=== PATIENT | female | born 1930 | race Caucasian/White ===

== ENCOUNTER 2019-03-10 22:42 | Inpatient (IN) ==
[2019-03-10] MEDS ORDERED: CARDIZEM IV ONE (23:35)
[2019-03-11 00:20] LABS: BASO# 0.04 X1000 (0.0-0.2); BASO% 0.7 % (0.0-0.8); EOS# 0.18 X1000 (0.0-0.7); EOS% 3.3 % (0.0-10.0); HEMATOCRIT 40.4 % (37.0-47.0); HEMOGLOBIN 13.3 g/dL (12.0-16.0); LYMPH# 1.47 X1000 (1.2-3.4); LYMPH% 26.9 % (20.5-51.1); MCH 31.2 PG (27-31); MCHC 32.9 g/dL (33-37); MCV 94.8 FL (81-99); MONO# 0.41 X1000 (0.11-0.59); MONO% 7.5 % (1.7-9.3); MPV 10.6 FL (7.4-10.4); NEUT# 3.37 X1000 (1.4-6.5); NEUT% 61.6 % (42.2-75.2); PLT 274 X1000 (130-400); RBC 4.26 XMIL (4.2-5.4); RDW 13.5 % (11.5-14.5); WBC 5.47 X1000 (4.8-10.8)
[2019-03-11 00:28] LABS: INR 0.86; PROTIME 12.4 Seconds (11.0-16.0); PTT 28.1 Seconds (22.3-41.8)
[2019-03-11 00:49] LABS: ALB/GLOB RATIO 1.4; ALBUMIN 4.4 g/dL (3.5-5.0); CALCIUM 9.6 mg/dL (8.8-10.2); CREATININE 1.5 mg/dL (0.5-0.9); POTASSIUM 4.5 mmol/L (3.5-5.1); TOTAL BILIRUBIN 0.18 mg/dL (0.20-1.00); TOTAL PROTEIN 7.5 g/dL (6.3-8.3)
[2019-03-11] MEDS: CARDIZEM 125 MG/D5W 125 MG/125 ML IVPB IV SCH ×3 (01:04→11:15)
--- NOTE | 2019-03-11 02:25 | HISTORY AND PHYSICAL ---
PRIMARY CARE PHYSICIAN: Dr. Galvan. CHIEF COMPLAINT: Heart racing and dizziness, not feeling well. HISTORY OF PRESENTING ILLNESS: An 88-year-old elderly female with a history of hypertension, chronic atrial fibrillation, hypothyroidism, and breast cancer, presented to emergency department with 1-day history of having heart racing, dizziness, and not feeling well. She subsequently had come to the emergency department. In the ED, she was found to be in atrial fibrillation with rapid ventricular response. She was started on IV Cardizem, and she will require admission for further management. At the time of my examination, she denied any headache, fever, chills, chest pain, hemoptysis, melena, weight changes, but complained of heart racing and not feeling well. PAST MEDICAL HISTORY: Includes hypertension, breast cancer, chronic atrial fibrillation, hypothyroidism. PAST SURGICAL HISTORY: Hysterectomy, tonsillectomy, cataract surgery, left breast lumpectomy, septoplasty. ALLERGIES: Sulfa, penicillin, amoxicillin. CURRENT MEDICATIONS: Include amiodarone 200 mg p.o. b.i.d., Eliquis 2.5 mg p.o. b.i.d., atenolol 12.5 mg p.o. b.i.d., levothyroxine 137 mcg p.o. daily, omeprazole 20 mg p.o. daily, paroxetine 20 mg p.o. daily, pravastatin 20 mg p.o. at bedtime. SOCIAL HISTORY: No history of smoking. Admits to social alcohol use. Denies any illicit drug use. FAMILY HISTORY: No history of coronary artery disease. REVIEW OF SYSTEMS: Fourteen-point review of systems is as in HPI. Other systems negative. PHYSICAL EXAMINATION: GENERAL: Cooperative, friendly female, she is resting more comfortably now. VITAL SIGNS: Temperature 97.3 degrees, pulse 102, respiration 18, blood pressure 104/64. HEENT: Atraumatic, normocephalic. Extraocular movements intact. PERRLA. NECK: No masses. CHEST: Clear to auscultation. CARDIOVASCULAR: Irregular. ABDOMEN: Soft. Positive bowel sounds. EXTREMITIES: No edema. NEURO: Nonfocal. GENITOURINARY: No bladder distention. SKIN: Warm. LABORATORIES AND STUDIES: WBC 5.47, hemoglobin 13.3, hematocrit 40.4, platelets 274,000. Sodium 141, potassium 4.5, chloride 103, CO2 is 23, BUN is 22, creatinine 1.5. Glucose 111. Chest x-ray is negative. ASSESSMENT: This is an 88-year-old female with a history of chronic atrial fibrillation, hypertension, hypothyroidism, who presented to the emergency department with 1-day history of having cough heart racing, dizziness, not feeling well. She was evaluated in the emergency department. She was found to be in atrial fibrillation with rapid ventricular response. She subsequently was started on Cardizem and she will require admission for further management. 1. Atrial fibrillation with rapid ventricular response. 2. Hypertension. 3. Hypothyroidism. PLAN: 1. We will admit patient to [facility]. 2. Continue with Cardizem drip. 3. We will consult Cardiology. 4. We will monitor blood pressure closely. 5. We will check thyroid function tests. 6. We will continue with Eliquis for DVT prophylaxis. 7. We will continue to follow and reassess, make further recommendation based on patient's clinical course. cc: MD Norm Stoner MD
--- NOTE | 2019-03-11 04:10 | PROVIDER DOCUMENTATION ---
This chart was entered by Marianna Christensen Scribe, acting as scribe for Edd Maxwell MD. HPI-Cardiac General - General Chief Complaint: Palpitations Stated Complaint: AFIB Time Seen by Provider: 03/10/19 23:29 Source: patient Allergies/Adverse Reactions: Patient Allergies Allergy/AdvReac Type Severity Reaction Status Date / Time anastrozole [From Arimidex] Allergy Intermediate HIVES Verified 03/10/19 23:54 Penicillins Allergy Unknown Unknown Verified 03/10/19 23:54 amoxicillin trihydrate * AdvReac Severe Unknown Verified 03/10/19 23:54 [From Augmentin] potassium clavulanate * AdvReac Severe Unknown Verified 03/10/19 23:54 [From Augmentin] Sulfa (Sulfonamide AdvReac Intermediate NAUSEA Verified 03/10/19 23:54 Antibiotics) [Sulfa(Sulfonamide Antibiotics)] Home Medications: Home Medication List Medication Instructions Recorded Confirmed Last Taken Type Calcium Citrate/Vitamin D3 1 each PO DAILY 07/08/12 03/11/19 11/17/13 09:00 History [Citracal + D Caplet] Cyanocobalamin (Vitamin B-12) 0 mcg PO DAILY 07/08/12 03/11/19 11/17/13 13:00 History [Vitamin B-12] Glucosa Ponce 2Kcl/Chondroitin Ponce 1 each PO BID 07/08/12 03/11/19 11/17/13 13:00 History [Glucosamine & Chondroitin Cap] Iron,Carbonyl [Feosol] 45 mg PO DAILY 07/08/12 03/11/19 11/17/13 09:00 History Levothyroxine Sodium [Synthroid] 125 mcg PO DAILY 07/08/12 03/11/19 11/17/13 09:00 History Magnesium 0 mg PO DAILY 07/08/12 03/11/19 11/17/13 09:00 History Multivitamins/Minerals [Centrum 1 each PO DAILY 07/08/12 11/18/13 11/17/13 09:00 History Silver] Omeprazole [Prilosec] 20 mg PO DAILY 07/08/12 11/18/13 11/17/13 09:00 History Paroxetine HCl [Paxil] 20 mg PO QHS 07/08/12 03/11/19 11/17/13 09:00 History Apixaban [Eliquis] 2.5 mg PO BID #0 tablet 09/20/13 11/18/13 11/17/13 09:00 Rx Atenolol [Tenormin] 12.5 mg PO BID #0 tablet 09/20/13 11/18/13 11/17/13 09:00 Rx Acetaminophen [Tylenol] 650 mg PO Q4H PRN PRN 03/11/19 03/11/19 Unknown History Amiodarone [Cordarone] 100 mg PO DAILY 03/11/19 03/11/19 Unknown History Amlodipine Besylate 2.5 mg PO DAILY 03/11/19 03/11/19 Unknown History Apixaban [Eliquis] 2.5 mg PO BID 03/11/19 03/11/19 Unknown History LISINOpril [Prinivil] 10 mg PO QHS 03/11/19 03/11/19 Unknown History Loratadine [Claritin] 10 mg PO QHS 03/11/19 03/11/19 Unknown History PRAVAstatin [Pravachol] 40 mg PO HS 03/11/19 03/11/19 Unknown History Vit C/E/Zn/Coppr/Lutein/Zeaxan 2 ea PO 03/11/19 Unknown History [Preservision Areds 2 Softgel] - History of Present Illness-Cardiac Nature of Presenting Problem: pt is a 88 yr old female presenting with complaint of Afib onset 2030 tonight, pt reports hx of Afib 5/6 yrs ago, resolved with cardio version, no recurrence since then until tonight. pt reports onset tonight while at rest. pt denies any chest pain or shortness of breath, is on Eliquis Severity in ED: moderate Onset/Duration: abrupt (2029) Timing: still present Context/Activities at Onset: reports: rest Modifying Factors: improves with: nothing Palpitation Quality: irregular History of arrythmia: reports: A-Fib Recent use of:: reports: no stimulants Nitro Today/Relief: reports: no nitro taken today Aspirin Treatment Today: reports: no aspirin today Associated Symptoms: denies: dizziness, fatigue, shortness of breath, syncope Similar Symptoms Previously?: Yes (5/6 yrs ago) Recently Seen Here or By Another Healthcare Provider: No Review of Systems - Adult - REVIEW OF SYSTEMS - ADULT Constitutional: denies: fever, fatique Eyes: denies: blurred vision, double vision Ears, Nose, Mouth & Throat: reports: no symptoms reported Cardiovascular: reports: irregular heart rate, palpitations. denies: chest pain, syncope Respiratory: denies: cough, shortness of breath Gastrointestinal: denies: nausea, vomiting Genitourinary: reports: no symptoms reported Musculoskeletal: reports: no symptoms reported Integumentary: reports: no symptoms reported Neurological: denies: dizziness/vertigo, headache/migraines, syncope Psychiatric: reports: no symptoms reported Endocrine: reports: no symptoms reported Hematologic/Lymphatic: reports: no symptoms reported Allergic/Immunologic: reports: no symptoms reported All Other Systems: Reviewed and Negative Past History - Adult - PAST MEDICAL HISTORY-ADULT Review of Records: reports: Old Records Reviewed, Nursing Assessment Review, Medications Reviewed, Social history reviewed & non-contributory. Major Childhood Illnesses: reports: denies history Cardiovascular: reports: denies history Respiratory: reports: denies history Gastrointestinal: reports: denies history Obstetrical/Gynecological: reports: denies history Genitourinary: reports: denies history Musculoskeletal: reports: denies history Neurological: reports: denies history Endocrine/Immune: reports: denies history Other Conditions: reports: denies history - IMMUNIZATION STATUS Childhood Immunizations: See Nurse Assessment Flu Vaccine: See Nurse Assessment - FAMILY HISTORY Family History: reviewed, not pertinent - SOCIAL HISTORY Living Situation: family Physical Exam-General - PHYSICAL EXAM-ADULT Initial Vital Signs Reviewed: Yes - CONSTITUTIONAL General Appearance: appears well, alert, no apparent distress - EYES Eyes: PERRL/EOMI - HEAD, EARS, NOSE, MOUTH & THROAT HENMT: normocephalic/atraumatic, moist mucous membranes - NECK Neck: non-tender, full range of motion, supple, normal inspection - RESPIRATORY Respiratory: chest non-tender, lungs clear, normal breath sounds - CARDIOVASCULAR Cardiovascular: normal peripheral pulses, no edema, tachycardia, irregularly irregular - GASTROINTESTINAL (ABDOMEN) Abdominal Exam: non tender, soft - LYMPHATIC Lymphatic: no adenopathy - MUSCULOSKELETAL Back Exam: normal inspection Extremity: normal range of motion, non-tender, normal gait, normal inspection - SKIN Integumentary: normal color, normal turgor, warm/dry - NEUROLOGIC Neurologic: grossly normal - PSYCHIATRIC Psych/Mental Status: normal mood/affect Progress - PLAN OF CARE/RESULTS Progress/Plan/Lab Results: Vital Signs - 8 hr 03/10/19 23:06 03/10/19 23:38 03/10/19 23:40 Temperature 97.3 F L Pulse Rate 102 H 127 H 133 H Respiratory Rate 18 19 26 H Blood Pressure 104/64 O2 Sat by Pulse Oximetry 94 L 93 L 03/10/19 23:41 03/10/19 23:48 03/10/19 23:50 Temperature Pulse Rate 142 H 128 H 127 H Respiratory Rate 29 H 29 H 33 H Blood Pressure 124/98 125/79 O2 Sat by Pulse Oximetry 95 97 98 03/11/19 00:00 03/11/19 00:03 03/11/19 00:10 Temperature Pulse Rate 123 H 135 H 134 H Respiratory Rate 21 24 27 H Blood Pressure 92/65 O2 Sat by Pulse Oximetry 96 97 96 03/11/19 00:18 03/11/19 00:20 03/11/19 00:34 Temperature Pulse Rate 144 H 136 H 124 H Respiratory Rate 19 12 25 H Blood Pressure 105/88 O2 Sat by Pulse Oximetry 98 97 03/11/19 00:40 03/11/19 00:48 03/11/19 00:50 Temperature Pulse Rate 128 H 134 H 143 H Respiratory Rate 19 20 19 Blood Pressure 130/82 O2 Sat by Pulse Oximetry 96 96 97 03/11/19 01:00 03/11/19 01:02 03/11/19 01:03 Temperature Pulse Rate 130 H 135 H 128 H Respiratory Rate 19 22 19 Blood Pressure 98/73 109/74 O2 Sat by Pulse Oximetry 96 95 96 03/11/19 01:10 03/11/19 01:18 03/11/19 01:20 Temperature Pulse Rate 122 H 134 H 126 H Respiratory Rate 25 H 20 19 Blood Pressure 120/88 O2 Sat by Pulse Oximetry 96 98 97 Laboratory Results - last 24 hr 03/10/19 03/10/19 03/10/19 23:20 23:20 23:20 WBC 5.47 RBC 4.26 Hgb 13.3 Hct 40.4 MCV 94.8 MCH 31.2 H MCHC 32.9 L RDW Std Deviation 13.5 Plt Count 274 MPV 10.6 H Immature Gran % (Auto) 0.0 Neut % (Auto) 61.6 Lymph % (Auto) 26.9 Ward % (Auto) 7.5 Eos % (Auto) 3.3 Baso % (Auto) 0.7 Immature Gran # (Auto) 0.00 Neut # (Auto) 3.37 Lymph # (Auto) 1.47 Ward # (Auto) 0.41 Eos # (Auto) 0.18 Baso # (Auto) 0.04 PT 12.4 INR 0.86 PTT (Actin FS) 28.1 Sodium 141 Potassium 4.5 Chloride 103 Carbon Dioxide 26 Anion Gap 12 BUN 22 Creatinine 1.5 H Estimated GFR/1.73 m2 33 BUN/Creatinine Ratio 15 Glucose 111 H Calculated Osmolality 285 Calcium 9.6 Total Bilirubin 0.18 L AST 16 ALT 10 Alkaline Phosphatase 116 H Troponin T Total Protein 7.5 Albumin 4.4 Globulin 3.1 Albumin/Globulin Ratio 1.4 03/10/19 23:20 WBC RBC Hgb Hct MCV MCH MCHC RDW Std Deviation Plt Count MPV Immature Gran % (Auto) Neut % (Auto) Lymph % (Auto) Ward % (Auto) Eos % (Auto) Baso % (Auto) Immature Gran # (Auto) Neut # (Auto) Lymph # (Auto) Ward # (Auto) Eos # (Auto) Baso # (Auto) PT INR PTT (Actin FS) Sodium Potassium Chloride Carbon Dioxide Anion Gap BUN Creatinine Estimated GFR/1.73 m2 BUN/Creatinine Ratio Glucose Calculated Osmolality Calcium Total Bilirubin AST ALT Alkaline Phosphatase Troponin T < 0.010 Total Protein Albumin Globulin Albumin/Globulin Ratio Orders Category Date Time Status CHEST-2 VIEWS [RAD] Stat Exams 03/10/19 23:34 Taken CBC WITH ELECTRONIC DIFF [HEME] Stat Lab 03/10/19 23:20 Completed COMPREHENSIVE METABOLIC PANEL [CHEM] Stat Lab 03/10/19 23:20 Completed PROTIME WITH INR [COAG] Stat Lab 03/10/19 23:20 Completed PTT [COAG] Stat Lab 03/10/19 23:20 Completed TROPONIN T Stat Lab 03/10/19 23:20 Completed Diltiazem 125 mg/D5w [Cardizem 125 mg/D5w] Med 03/10/19 23:45 Active 125 mg in 125 ml IV As Directed mls/hr Diltiazem [Cardizem] Med 03/10/19 23:35 Discontinued 20 mg IV NOW ONE Transfer/Admit Order [TRANSFER] Routine Transfer 03/11/19 01:07 Ordered Result Diagrams: 03/10/19 23:20 03/10/19 23:20 - EKG 1 Time of EKG reading by physician:: 23:13 EKG Read and Signed by:: Edd Maxwell EKG Interpretation (*Must complete 3 of following elements*): Abnormal (non specific t wave abnormality, low voltage QRS) Rate: 137 Rhythm: afib with RVR QRS: other (low voltage QRS) - CONSULTS/PCP/HOSPITALIST Notification #1 *Consult/PCP/Hospitalist*: Dr Isabel Time Discussed: 01:00 Reason/Comments: plan of care discussed Consult Disposition: Admit Departure - Departure Date of Disposition Decision: 03/11/19 Time of Disposition Decision: 01:07 DIAGNOSIS: Atrial fibrillation with RVR Disposition: ADMITTED INPATIENT 09 Certified Medical Emergency: Emergent Condition: Stable - Critical Care Note This patient required my direct & personal management of CC.: Yes Total Time (mins): 36 Critical Care Statement: This patient required my direct personal management to treat or rule out processes, the absence of which, could potentiallly result in sudden, clinically significant life or limb threatening deterioration. Attestation - Physician/ FATIMAH Attestation Patient care was provided by Advanced Practice Provider:: No The physician spent face to face time with patient:: Yes Advanced Practice Provider documentation review:: Supervising physician onsite and consulted in the evaluation and care of this patient. The physician did have a face to face encounter with the patient. This chart was documented by the indicated scribe, (Marianna Christensen, [employer]) and accurately reflects the services I performed and decisions made by me, Edd Maxwell MD, as attested by the provider's signature.
--- NOTE | 2019-03-11 07:10 | Diag Imaging Result Doc PS360 ---
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 Otherwise lungs are clear and the heart and primary vascularity are within normal limits. There are some scattered granulomata. IMPRESSION: No acute disease. Electronically signed by Oh Cyr 03/11/2019 7:08 AM
--- NOTE | 2019-03-11 07:18 | EKG Report ---
Test Performed on : 03/10/2019 11:13:41 PM Test Reason : ED. NO EKG ORDER FOR MUSE Blood Pressure : / mmHG Vent. Rate : 137 BPM Atrial Rate : 138 BPM P-R Int : 000 ms QRS Dur : 094 ms QT Int : 310 ms P-R-T Axes : 000 019 012 degrees QTc Int : 468 ms Atrial fibrillation. with rapid ventricular response. Low voltage QRS Nonspecific T wave abnormality Abnormal ECG When compared with ECG of 19-SEP-2013 13:37, Atrial fibrillation. has replaced Sinus rhythm. Vent. rate has increased BY 79 BPM Nonspecific T wave abnormality, worse in Inferior leads Nonspecific T wave abnormality now evident in Lateral leads Unconfirmed Result
[2019-03-11] MEDS ORDERED: MAGNESIUM SULFATE 1 GM/D5W 1 GM/100 ML IVPB IV ONE (08:51)
[2019-03-11] MEDS ORDERED: CORDARONE PO SCH (09:00)
[2019-03-11] MEDS ORDERED: NORVASC PO SCH (09:00)
--- NOTE | 2019-03-11 09:05 | PROGRESS NOTE ---
DATE: 03/11/2019 SUBJECTIVE: The patient was admitted overnight with accelerated heart rate due to rapid ventricular response, atrial fibrillation. She is in chronic atrial fibrillation but is usually rate controlled. There have been no changes in medications. The patient's history was reviewed with her daughter who is a retired nurse. OBJECTIVE: Vital Signs: Temperature 98.0, heart rate 126, respirations 15, blood pressure 117/74, 95% saturated on 2 L nasal cannula. Physical Examination: The patient's heart is irregularly irregular with an accelerated rate just over 120 at the time of my examination. Lungs are clear to auscultation. Extremities show no peripheral edema. Neuropsychiatric: The patient is alert, oriented, conversive, and appropriate. Mood is normal. Laboratory: There are several laboratories pending today. Laboratories from last night were reviewed. ASSESSMENT AND PLAN: Chronic atrial fibrillation with rapid ventricular response. The patient is on a Cardizem drip, which is titratable. Her heart rate control has not yet been achieved. I am going to start her back on her home medications and actually up the dose of amiodarone. Dr. Gamez from cardiology has been consulted. We will make further plans moving forward. She is a regular patient of Dr. Aries Busby and records should be available to the cardiology team in regard to her history. cc: Norm Galvan MD
[2019-03-11] MEDS: ELIQUIS PO SCH ×2 (09:59→22:17)
[2019-03-11] MEDS: CITRACAL + D PO SCH (09:59)
[2019-03-11] MEDS: SYNTHROID PO SCH (09:59)
[2019-03-11] MEDS: PRILOSEC PO SCH (10:00)
[2019-03-11] MEDS ORDERED: CORDARONE PO ONE (10:43)
[2019-03-11] MEDS ORDERED: CARDIZEM PO ONE (10:45)
--- NOTE | 2019-03-11 11:19 | CARDIOLOGY CONSULTATION ---
DATE: 03/11/2019 HISTORY OF PRESENT ILLNESS: Ms. Sutton is an 88-year-old lady who has chronic atrial fibrillation, history of hypertension, hypothyroidism, breast cancer, presented to the emergency room with having increasing episodes of palpitations. In the emergency room, she was noted to be in atrial fibrillation rapid ventricular rate, started on a Cardizem drip. She denies any chest pain. She complains of feeling weak. There was no syncopal episode. REVIEW OF SYSTEMS: General: A 14-point review of system was done. GI system: There is no history of nausea, vomiting, diarrhea. There is no history of hematemesis or melena. Central nervous system: No focal weakness to suggest a CVA, TIA. system: There is no dysuria or hematuria. PAST MEDICAL HISTORY: 1. Chronic atrial fibrillation. 2. Hypertension. 3. Breast cancer. 4. Hypothyroidism. 5. Hysterectomy. 6. Tonsillectomy. 7. Cataract surgery. 8. Left breast lumpectomy. ALLERGIES: Allergic to sulfonamides, penicillin and amoxicillin. HOME MEDICATIONS: Amiodarone 100 mg daily, Eliquis 2.5 mg b.i.d., atenolol 12.5, levothyroxine 137, omeprazole 20, pravastatin, lisinopril 20 mg a day, amlodipine 2.5 mg a day. Please discontinue the beta blockers. PHYSICAL EXAMINATION: Vital Signs: Blood pressure 104/64. Cardiovascular System: Normal jugular venous pressure. First and second heart sounds were heard. There was soft systolic murmur. Respiratory System: Normal air entry. There is no crepitations and rhonchi. Abdomen: Soft, nontender. There was no guarding or rigidity. Bowel sounds were heard. Central nervous system: Alert and oriented. Was moving all 4 extremities. Examination of extremities revealed no pedal edema. HEENT: Atraumatic, normocephalic. Pupils were equal and reacting to light. X-RAYS: Chest x-ray: Opacities left lung with fibrosis. No change from previous x-rays. No acute disease. LABORATORY EXAMINATION: Revealed WBC 5.47, hemoglobin 13.3, hematocrit 40, platelet count of 274. Sodium 141, potassium 4.5. BUN 22, creatinine 1.5. Troponin 0.010. ASSESSMENT: Ms. Prince Sutton is an 88-year-old lady with history of hypertension, chronic atrial fibrillation, comes with complaints of having increasing episodes of palpitations. She is also hypothyroid. PLAN: 1. I will discontinue the amlodipine. 2. She is on a Cardizem drip. We will try to wean the Cardizem drip and put her on p.o. Cardizem 60 mg three times a day. 3. Her amiodarone was at 100 mg a day. It was increased to 400 mg a day. We will continue with that. 4. For anticoagulation therapy, she is on Eliquis 2.5 mg p.o. b.i.d. We will continue the same. 5. For hypertension, she also takes lisinopril 10 mg p.o. at bedtime. If her blood pressure continues to be low, we will hold the lisinopril. Otherwise have not made any other changes to her medications. We will get an echocardiogram to assess cardiac and valvular function. cc: MD Norm Bullard MD
[2019-03-11] MEDS: CARDIZEM PO SCH ×2 (14:53→22:16)
[2019-03-11] MEDS ORDERED: LANOXIN IV ONE (17:05)
[2019-03-11] MEDS ORDERED: CORDARONE 360 MG/D5W 360 MG/200 ML IV.SOLN IV ONE ×2 (21:01→21:09)
[2019-03-11] MEDS ORDERED: CORDARONE 150 MG/D5W 150 MG/100 ML IV.SOLN IV ONE (21:09)
[2019-03-11] MEDS: PRINIVIL PO SCH (22:17)
[2019-03-11] MEDS: PAXIL PO SCH (22:17)
[2019-03-11] MEDS: PRAVACHOL PO SCH (22:17)
[2019-03-12] MEDS ORDERED: CORDARONE 540 MG in D5W 289.2 ML IV ONE ×2 (03:01→03:09)
[2019-03-12 05:50] LABS: RBC 3.74 XMIL (4.2-5.4); WBC 5.06 X1000 (4.8-10.8)
[2019-03-12 05:51] LABS: BASO# 0.02 X1000 (0.0-0.2); BASO% 0.4 % (0.0-0.8); EOS# 0.24 X1000 (0.0-0.7); EOS% 4.7 % (0.0-10.0); HEMATOCRIT 35.5 % (37.0-47.0); HEMOGLOBIN 11.6 g/dL (12.0-16.0); LYMPH# 1.39 X1000 (1.2-3.4); LYMPH% 27.5 % (20.5-51.1); MCHC 32.7 g/dL (33-37); MCV 94.9 FL (81-99); MONO# 0.37 X1000 (0.11-0.59); MONO% 7.3 % (1.7-9.3); MPV 10.6 FL (7.4-10.4); NEUT# 3.04 X1000 (1.4-6.5); NEUT% 60.1 % (42.2-75.2); PLT 261 X1000 (130-400); RDW 13.6 % (11.5-14.5)
[2019-03-12] MEDS: PRILOSEC PO SCH (06:05)
[2019-03-12] MEDS: SYNTHROID PO SCH (06:05)
[2019-03-12 06:08] LABS: CALCIUM 8.4 mg/dL (8.8-10.2); CREATININE 1.1 mg/dL (0.5-0.9); MAGNESIUM 2.3 mg/dL (1.5-2.7); POTASSIUM 3.9 mmol/L (3.5-5.1)
--- NOTE | 2019-03-12 08:33 | PROGRESS NOTE ---
DATE: 03/12/2019 SUBJECTIVE: The patient is asleep. I spoke at length with her daughter. The daughter stated that on the night of admission, the patient got no sleep all night and notes she is recovering now that she is back in sinus rhythm. OBJECTIVE: Vital Signs: 98.1, 50, 15, 99/60. Physical exam not undertaken. LABORATORY DATA: TSH is 2.73. BUN 19, creatinine 1.1. Hemoglobin is 11.6. ASSESSMENT AND PLAN: 1. The patient appears to have converted to sinus rhythm looking at the monitor. She had several boluses of amiodarone yesterday and was started on Cardizem. It is noted that her blood pressure is low, but she is asleep. We will see how this blood pressure flushes out during the day and whether we can establish an appropriate regimen for home use in the next day or so. 2. The patient's other medications will remain as they were previously. 3. Noted slight anemia. 4. We will plan physical therapy intervention today to get the patient up and walk in the halls. cc: Norm Galvan MD
[2019-03-12] MEDS ORDERED: CORDARONE PO SCH (09:00)
[2019-03-12] MEDS: CARDIZEM PO SCH ×3 (09:19→20:22)
[2019-03-12] MEDS: ELIQUIS PO SCH ×2 (09:19→20:22)
[2019-03-12] MEDS: CITRACAL + D PO SCH (10:35)
[2019-03-12] MEDS: CORDARONE PO SCH (14:06)
--- NOTE | 2019-03-12 14:19 | EKG Report ---
Test Performed on : 03/12/2019 1:33:37 PM Test Reason : afib Blood Pressure : / mmHG Vent. Rate : 054 BPM Atrial Rate : 054 BPM P-R Int : 190 ms QRS Dur : 084 ms QT Int : 474 ms P-R-T Axes : 097 039 029 degrees QTc Int : 449 ms Sinus bradycardia. Otherwise normal ECG When compared with ECG of 10-MAR-2019 23:13, (Unconfirmed) Sinus rhythm. has replaced Atrial fibrillation. Vent. rate has decreased BY 83 BPM Unconfirmed Result
--- NOTE | 2019-03-12 15:20 | ECHO REPORT ---
ORDER DATE: 03/11/2019 ECHOCARDIOGRAPHIC MEASUREMENTS: 1. Interventricular septum 1.0. 2. Left ventricular posterior wall 1.1. 3. Diastolic diameter 3.5. 4. Left atrium 3.7. 5. Aorta 3.7. SUMMARY: 1. Normal left ventricular cavity size. Estimated ejection fraction of 65%. There is diastolic dysfunction. 2. Aortic valve leaflets are trileaflet. 3. Pulmonic valve was normal. There is mild pulmonary regurgitation. 4. Tricuspid valve was normal. 5. Mitral valve was normal. There is biatrial enlargement. There is moderate tricuspid regurgitation. Peak velocity across the tricuspid valve was 2.9 m/sec. 6. Pulmonary artery systolic pressure of 44 to 48 mmHg. There is mild mitral regurgitation. Peak velocity across the aortic valve less than 2 m/sec. By Doppler studies, there is no aortic stenosis or regurgitation. 7. There is no pericardial effusion or obvious intracardiac mass or thrombus seen. cc: MD Norm Bullard MD
[2019-03-12] MEDS: PRAVACHOL PO SCH (20:22)
[2019-03-12] MEDS: PAXIL PO SCH (20:22)
[2019-03-12] MEDS: PRINIVIL PO SCH (22:08)
[2019-03-13] MEDS: PRILOSEC PO SCH (06:11)
[2019-03-13] MEDS: SYNTHROID PO SCH (06:11)
[2019-03-13 07:25] VITALS: BP 121/64
[2019-03-13] MEDS: ELIQUIS PO SCH (08:40)
[2019-03-13] MEDS: CITRACAL + D PO SCH (08:40)
[2019-03-13] MEDS: CORDARONE PO SCH (08:40)
[2019-03-13] MEDS ORDERED: CARDIZEM CD PO SCH (09:00)
--- NOTE | 2019-03-13 10:05 | DISCHARGE SUMMARY ---
ADMISSION DATE: 03/11/2019 DISCHARGE DATE: 03/13/2019 DISCHARGE DIAGNOSES: 1. Paroxysmal atrial fibrillation. 2. Hypertension. 3. Hypercholesterolemia. 4. Hypothyroidism. CONSULTATIONS: Dr. Gamez. HOSPITAL COURSE: An 88-year-old white female presented to the emergency room with atrial fibrillation and rapid ventricular response. She has a history of paroxysmal atrial fibrillation, but does not have any episodes for a number of years. She has been stable on a dose of amiodarone for quite some time. The patient was running heart rates in the 120s and 130s. She was admitted to the hospital and started on Cardizem drip, but after nearly 24 hours her rate really had not dropped that much. She was given additional doses of amiodarone and continued with the Cardizem. Her Norvasc was discontinued. On day 2 at some point her heart flipped into sinus rhythm and was maintained there for greater than 24 hours on oral Cardizem and the accelerated dose of amiodarone. At the time of discharge, I had considered whether increased doses as recommended by Cardiology would be in order in regard to her amiodarone. Because she had so few episodes on a stable dose, I decided to put her back on her home dosage and just add Cardizem CD 120. During her hospitalization, she was on 180 mg, but her blood pressure was running somewhat precariously low for a woman her age, so I reduced that dose slightly. My hope is that she will be stable on minimal medication change. She is aware that she can call at any time. The remainder of her home medications remain the same, and she should have follow up in about 2 weeks. At that time, we may want to check serum electrolytes, BUN, creatinine, TSH and free T4. This was discussed at length with the patient and her daughter and they had no questions. Prescriptions were called into [facility]. cc: Norm Galvan MD
== END 2019-03-13 10:50 | disposition home or self-care (01) | DRG 310 ==
LOC: ED 22:42 → EDIPHOLD 03-11 01:28 → SUATTDRO 03-11 01:28 → 3S 03-11 03:23
PROVIDERS: ADMIT Internal Medicine; ATTEND Internal Medicine
CPT/HCPCS: 71020; 71046; 80048; 80053; 83735; 84443; 84484; 85025; 85610; 85730; 93005; 93306; 97162; 97530; A9270; J0282; J1160; J3475